=== PATIENT | male | born 1975 | race Caucasian/White ===

== ENCOUNTER 2019-02-10 14:48 | Emergency (ER) | payer OTHER ==
[~2019-02-10] VITALS: Ht 170.2 cm; Wt 70.3 kg
[~2019-02-10 14:48] MED LIST: IBUP600 PO; LEVFLO500 PO; Ultram50 MG PO
[2019-02-10] MEDS ORDERED: Vibramycin100 MG PO (15:34)
== END 2019-02-10 15:57 | disposition home or self-care (01) ==
LOC: ER 14:48
DX: L73.8 Other specified follicular disorders (principal)
CPT/HCPCS: 99282

== ENCOUNTER 2019-04-11 10:25 | Emergency (ER) | payer OTHER ==
[~2019-04-11] VITALS: Ht 170.2 cm; Wt 70.3 kg
[~2019-04-11 10:25] MED LIST changes: +Vibramycin100 MG PO
[2019-04-11 10:56] LABS: BASOPHILS ABSOLUTE AUTO 0.04 K/mm3 (0.00-0.23); BASOPHILS PERCENT AUTO 0 % (0-2); EOSINOPHILS ABSOLUTE AUTO 0.07 K/mm3 (0.00-0.68); EOSINOPHILS PERCENT AUTO 1 % (0-6); Hematocrit 44.5 % (37.0-53.0); IMMATURE GRAN ABSOLUTE AUTO 0.03 K/mm3 (0.00-0.10); IMMATURE GRAN PERCENT AUTO 0 % (0-1); LYMPHOCYTES ABSOLUTE AUTO 1.17 K/mm3 (0.84-5.20); LYMPHOCYTES PERCENT AUTO 10 % (21-46); MONOCYTES ABSOLUTE AUTO 1.17 K/mm3 (0.16-1.47); MONOCYTES PERCENT AUTO 10 % (4-13); Mean Corpuscular HGB 31.9 pg (26.0-34.0); Mean Corpuscular HGB Conc 33.7 g/dL (31.5-36.5); Mean Corpuscular Volume 95 fL (80-100); Mean Platelet Volume 8.9 fL (9.1-12.4); NEUTROPHILS ABSOLUTE AUTO 9.58 K/mm3 (1.96-9.15); NEUTROPHILS PERCENT AUTO 80 % (41-73); Platelet Count 320 K/mm3 (150-400); RDW Coefficient Variation 11.8 % (11.7-14.2); RDW Standard Deviation 41.1 fL (35.1-46.3); White Blood Cell Count 12.06 K/mm3 (4.00-11.30)
[2019-04-11 11:20] LABS: Alanine Aminotransfer (ALT/SGP 19 U/L (12-78); Albumin, Blood 3.5 g/dL (3.4-5.0); Albumin/Globulin Ratio 0.7 (0.8-1.8); Alk Phos 124 U/L (50-136); Anion Gap 7 mmol/L (6-16); Aspartate Aminotrans (AST/SGOT 13 U/L (12-37); Bilirubin, Total 0.6 mg/dL (0.1-1.0); Blood Urea Nitrogen 15 mg/dL (8-24); Bun/Creatinine Ratio 19.6 (12.0-20.0); CO2, Blood 31 mmol/L (21-32); Calcium, Blood 9.6 mg/dL (8.5-10.1); Chloride, Blood 99 mmol/L (98-108); Creatinine, Blood 0.77 mg/dL (0.60-1.20); Globulin, Blood 4.8 g/dL (2.2-4.0); Glomerular Filtration Rate >60 (60-); Glucose, Blood 104 mg/dL (70-99); Potassium, Blood 4.1 mmol/L (3.5-5.5); Sodium, Blood 137 mmol/L (136-145); Total Protein, Blood 8.3 g/dL (6.4-8.2)
[2019-04-11 12:53] LABS: Bilirubin, Urine Neg (Neg); Blood, Urine Neg (Neg); Glucose Qualitative, Urine Neg (Neg); Ketones, Urine Neg (Neg); Leukocyte Esterase, Urine Neg (Neg); Nitrite, Urine Neg (Neg); Protein, Urine Neg (Neg); Specific Gravity, Urine 1.015 (1.003-1.022); Urobilinogen, Urine NORM (Normal); pH, Urine 6.5 (5.0-8.0)
[2019-04-11 13:04] LABS: Appearance, Urine Clear (Clear); Color, Urine Yellow (P-Yellow)
[2019-04-11] MEDS ORDERED: Roxicodone5 MG PO (14:27)
== END 2019-04-11 14:44 | disposition home or self-care (01) ==
LOC: ER 10:25
PROVIDERS: Emergency Medicine
DX: S22.41XA Multiple fractures of ribs, right side, initial encounter for closed fracture (principal); J98.11 Atelectasis; W01.10XA Fall on same level from slipping, tripping and stumbling with subsequent striking against unspecified object, initial encounter
CPT/HCPCS: 36415; 71046; 71260; 74177; 80053; 81003; 83690; 85025; 96360-59; 99284-25; J7120; Q9967

== ENCOUNTER 2019-12-07 13:42 | Emergency (ER) | payer OTHER ==
[~2019-12-07] VITALS: Ht 170.2 cm; Wt 70.3 kg
[~2019-12-07 13:42] MED LIST changes: +Roxicodone5 MG PO
[2019-12-07] MEDS ORDERED: Cipro500 MG PO (14:57)
[2019-12-07] MEDS ORDERED: NAPROXEN SODIU PO (14:57)
[2019-12-07] MEDS ORDERED: TRAM50 PO (14:58)
[2019-12-07] MEDS ORDERED: Roxicodone5 MG PO (15:30)
[2019-12-07] MEDS ORDERED: DOXYCYCLINE HY100 M1 PO (15:30)
== END 2019-12-07 15:50 | disposition home or self-care (01) ==
LOC: ER 13:42
DX: S52.512A Displaced fracture of left radial styloid process, initial encounter for closed fracture (principal); N45.1 Epididymitis; V00.131A Fall from skateboard, initial encounter
CPT/HCPCS: 29125; 73110; 96372-59; 99284-25; J0696; L3917

== ENCOUNTER 2019-12-29 18:40 | Emergency (ER) | payer OTHER ==
[~2019-12-29] VITALS: Ht 170.2 cm; Wt 70.3 kg
[~2019-12-29 18:40] MED LIST changes: +Cipro500 MG PO; +DOXYCYCLINE HY100 M1 PO; +NAPROXEN SODIU PO; +TRAM50 PO
== END 2019-12-29 20:02 | disposition left against medical advice (07) ==
LOC: ER 18:40
DX: Z53.21 Procedure and treatment not carried out due to patient leaving prior to being seen by health care provider (principal)

== ENCOUNTER → 2019-12-31 | Outpatient (CLI) | payer OTHER ==
[~2019-12-31] MED LIST changes: +DOXY100 PO
[2020-01-02 23:08] LABS: CHLAMYDIA TRACHOMATIS, NAA Negative (Negative); NEISSERIA GONORRHOEAE, NAA Negative (Negative)
== END | disposition home or self-care (01) ==
LOC: LAB 20:34 → LAB SHORT 20:34
PROVIDERS: Family Medicine
DX: N45.1 Epididymitis (principal)
CPT/HCPCS: 87491; 87591

== ENCOUNTER 2020-04-19 08:42 | Emergency (ER) | payer OTHER ==
[~2020-04-19] VITALS: Ht 170.2 cm; Wt 65.8 kg
[2020-04-19] MEDS ORDERED: Bactrim Ds Tab1 EACH PO (09:29)
[2020-04-19] MEDS ORDERED: CEPH500 PO (09:29)
== END 2020-04-19 09:59 | disposition home or self-care (01) ==
LOC: ER 08:42
DX: L03.114 Cellulitis of left upper limb (principal); Z86.14 Personal history of Methicillin resistant Staphylococcus aureus infection; Z87.828 Personal history of other (healed) physical injury and trauma
CPT/HCPCS: 73080; 99283-25

== ENCOUNTER 2021-06-01 11:32 | Emergency (ER) | payer OTHER ==
[~2021-06-01] VITALS: Ht 170.2 cm; Wt 70.3 kg
[~2021-06-01 11:32] MED LIST changes: +Bactrim Ds Tab1 EACH PO; +CEPH500 PO
[2021-06-01] MEDS ORDERED: Percocet 5-3251 EACH PO (12:39)
== END 2021-06-01 13:20 | disposition home or self-care (01) ==
LOC: ER 11:32
DX: S52.302A Unspecified fracture of shaft of left radius, initial encounter for closed fracture (principal); S52.202A Unspecified fracture of shaft of left ulna, initial encounter for closed fracture; W22.8XXA Striking against or struck by other objects, initial encounter
CPT/HCPCS: 29125; 73090; 96372; 99283-25; A9270; J1170

== ENCOUNTER 2021-06-14 11:07 | Day surgery (SDC) | payer OTHER ==
[~2021-06-14] VITALS: Ht 165.1 cm; Wt 71.6 kg
[~2021-06-14 11:07] MED LIST changes: +Percocet 5-3251 EACH PO; +VICODIN HP 10-1 EAC1
[2021-06-14] MEDS ORDERED: REVATIO20 MG PO (11:38)
--- NOTE | 2021-06-14 11:55 | NUR ---
Ambulatory in Day Surgery History, Chart, Medications and Allergies reviewed before start of procedure.Patient confirms NPO status and agrees with scheduled surgery. Lungs clear T/O to Auscultation. Patient States Post-Procedure ride home has been arranged WITH SIGNIFICANT OTHER.
--- NOTE | 2021-06-14 16:20 | NUR ---
Patient up to Ambulate independently. Gait steady.TOLERATING PO. OFFERED MEDICATION FOR SEVERE PAIN X3 PT DENIED AND "READY TO GO HOME"CAP REFILLL TO LEFT EXTREMITY LESS THAN 3 SEC. ABLE TO MOVE FINGERS. Discharge instructions reviewed with patient. Patient verbalizes understanding. Copy given to patient to take home. Discharged via wheelchair to private car for ride home WITH SPOUSE.PAIN PRESCRIPTION IN DISCHARGE FOLDER WITH PT.
== END 2021-06-14 16:27 | disposition home or self-care (01) ==
LOC: ORSCMMR 11:07 → SDS 11:07 → ORSCMMR 11:08 → SDS 16:27
PROVIDERS: Orthopaedic Surgery
PROC: 0PSL04Z Reposition Left Ulna with Internal Fixation Device, Open Approach (ICD-10-PCS; principal; 2021-06-14 12:30)
PROC: 0PSJ04Z Reposition Left Radius with Internal Fixation Device, Open Approach (ICD-10-PCS; principal; 2021-06-14 12:30)
DX: S52.302A Unspecified fracture of shaft of left radius, initial encounter for closed fracture (principal); S52.202A Unspecified fracture of shaft of left ulna, initial encounter for closed fracture; W22.8XXA Striking against or struck by other objects, initial encounter
CPT/HCPCS: A9270; C1713; J0690; J1100; J2250; J2370; J2405; J2704; J3010; J7120

== ENCOUNTER → 2022-05-31 | Outpatient (CLI) | payer OTHER ==
[~2022-05-31] MED LIST changes: +REVATIO20 MG PO
[2022-06-03 01:11] LABS: CHLAMYDIA TRACHOMATIS, NAA Negative (Negative)
== END ==
LOC: LAB SHORT 16:12 → LAB 16:12
PROVIDERS: Nurse Practitioner
DX: R30.0 Dysuria (principal)
CPT/HCPCS: 87077; 87086; 87186; 87491; 87591

== ENCOUNTER → 2022-07-13 | Outpatient (CLI) | payer OTHER | END | disposition home or self-care (01) | LOC: LAB SHORT 14:30 → LAB 14:30 | DX: R30.0 Dysuria (principal) | CPT/HCPCS: 87077; 87086; 87186 ==

== ENCOUNTER → 2023-04-07 | Outpatient (CLI) | payer OTHER ==
[2023-04-09 22:09] LABS: CHLAMYDIA TRACHOMATIS, NAA Negative (Negative)
== END | disposition home or self-care (01) ==
LOC: LAB SHORT 16:25 → LAB 16:25
PROVIDERS: Physician Assistant
DX: Z72.51 High risk heterosexual behavior (principal)
CPT/HCPCS: 87086; 87491; 87591

== ENCOUNTER → 2025-06-15 | Outpatient (CLI) | payer OTHER ==
[2025-06-15 20:17] LABS: Chlamydia Trachomatis Urine NOT DETECTED (NOT DETECT); Neisseria Gonorrhoea Urine NOT DETECTED (NOT DETECT)
== END ==
LOC: LAB 16:09 → LAB SHORT 16:09
PROVIDERS: Physician Assistant
DX: Z72.51 High risk heterosexual behavior (principal)
CPT/HCPCS: 87086; 87491; 87591